=== PATIENT | female | born 1950 | race Two or more races ===

== ENCOUNTER 2021-08-02 12:17 | Emergency (ER) | payer OTHER, MEDICAID ==
[~2021-08-02] VITALS: Ht 144.8 cm; Wt 86.2 kg
[2021-08-02 14:06] VITALS: BP 130/48
[2021-08-02 14:12] LABS: Albumin 4.2 g/dL (3.4-5.0); BUN/Creatinine Ratio 19.1; Potassium 4.3 mmol/L (3.5-5.1)
[2021-08-02 14:14] LABS: Bilirubin, Total 0.4 mg/dL (0.2-1.0); Total Protein 7.9 g/dL (6.4-8.2)
[2021-08-02 14:23] LABS: Basophils # (auto) 0.2 10 ^3/uL (0-0.2); Basophils % (auto) 2.7 % (0.0-2.0); Eosinophils # (auto) 0.1 10 ^3/uL (0-0.8); Eosinophils % (auto) 1.9 % (0.0-7.0); Hematocrit 42.2 % (36.0-46.0); Hemoglobin 13.8 g/dL (12.2-16.2); Lymphocytes # (auto) 1.7 10 ^3/uL (0.4-5.4); Lymphocytes % (auto) 30.2 % (10.0-50.0); Mean Corpuscular Hemoglobin 28.5 pg (28.0-32.0); Mean Corpuscular Hgb Conc. 32.6 g/dL (32.0-36.0); Mean Corpuscular Volume 87.5 fL (80.0-100.0); Monocytes # (auto) 0.4 10 ^3/uL (0-1.3); Monocytes % (auto) 7.5 % (0.0-12.0); Neutrophils # (auto) 3.3 10 ^3/uL (1.6-8.6); Neutrophils % (auto) 57.7 % (37.0-80.0); Nucleated Red Blood Cells % 0.2 %; Red Blood Cells 4.82 10^6/uL (4.0-5.20); Red Cell Distribution Width 14.1 % (11.8-14.3); White Blood Cell 5.7 10^3/uL (4.4-10.8)
[2021-08-02 14:27] LABS: INR 1.02 (0.9-1.15); Partial Thromboplastin Time 29.9 sec (23.6-33.0)
== END 2021-08-02 14:06 | disposition short-term general hospital (02) ==
LOC: ER 12:24
DX: S06.5X0A Traumatic subdural hemorrhage without loss of consciousness, initial encounter (principal); E78.5 Hyperlipidemia, unspecified; R42 Dizziness and giddiness; I10 Essential (primary) hypertension; W18.09XA Striking against other object with subsequent fall, initial encounter; Y93.89 Activity, other specified; Y92.89 Other specified places as the place of occurrence of the external cause; Y99.8 Other external cause status
CPT/HCPCS: 36415; 70450; 80053; 85025; 85610; 85730

== ENCOUNTER 2022-11-10 10:23 | Emergency (ER) | payer OTHER, MEDICAID ==
[~2022-11-10] VITALS: Ht 149.9 cm; Wt 86.3 kg
[2022-11-10 10:48] LABS: Basophils # (auto) 0.1 10 ^3/uL (0-0.2); Eosinophils # (auto) 0 10 ^3/uL (0-0.8); Hematocrit 43.1 % (36.0-46.0); Hemoglobin 14.1 g/dL (12.2-16.2); Lymphocytes # (auto) 1.5 10 ^3/uL (0.4-5.4); Lymphocytes % (auto) 29.5 % (10.0-50.0); Mean Corpuscular Hemoglobin 28.7 pg (28.0-32.0); Mean Corpuscular Hgb Conc. 32.7 g/dL (32.0-36.0); Mean Corpuscular Volume 87.6 fL (80.0-100.0); Monocytes # (auto) 0.4 10 ^3/uL (0-1.3); Monocytes % (auto) 7.8 % (0.0-12.0); Neutrophils # (auto) 3.2 10 ^3/uL (1.6-8.6); Neutrophils % (auto) 60.7 % (37.0-80.0); Nucleated Red Blood Cells % 0.2 %; Red Blood Cells 4.93 10^6/uL (4.0-5.20); Red Cell Distribution Width 14.3 % (11.8-14.3); White Blood Cell 5.2 10^3/uL (4.4-10.8)
[2022-11-10 11:04] LABS: Calcium 9.2 mg/dL (8.5-10.1)
[2022-11-10 11:09] LABS: BUN/Creatinine Ratio 22.6 (10.0-20.0); Bilirubin, Total 0.6 mg/dL (0.2-1.0); Magnesium 2.3 mg/dL (1.6-2.6); Total Protein 6.8 g/dL (6.4-8.2)
[2022-11-10 15:21] VITALS: BP 145/68
== END 2022-11-10 15:21 | disposition home or self-care (01) ==
LOC: ER 10:23 → EDBD 10:23 → ER 15:21
DX: R53.1 Weakness (principal); I11.0 Hypertensive heart disease with heart failure; I50.9 Heart failure, unspecified; E78.5 Hyperlipidemia, unspecified; E11.9 Type 2 diabetes mellitus without complications; R51.9 Headache, unspecified
CPT/HCPCS: 36415; 70450; 71045; 80053; 82962; 83735; 84484; 85025; 93005

== ENCOUNTER 2025-03-11 17:53 | Emergency (ER) | payer OTHER, MEDICAID ==
[~2025-03-11] VITALS: Ht 147.3 cm; Wt 78.0 kg
[2025-03-11 17:55] VITALS: BP 119/55; PULSE 76; RESP 18; TEMP 98.1; O2SAT 97
--- NOTE | 2025-03-11 18:32 | ED.PDOC ---
History of Present Illness(SKN HPI Comments 74 year old female presents to ER for wound check. Patient states she's had a small non-tender palpable lump to left clavicle x 2 weeks and presents to ER today for wound check. Patient also endorses intermittent left shoulder pain x 3 months. Patient presents to ER ambulatory on arrival, with steady gait, in no distress with a small non-tender 1cm x 1cm mobile, well-circumscribed annular cyst to left mid clavicle without any erythema, increased warmth or fluctuance noted. Denies fever, body aches, chills, shortness of breath, chest pain, injury, numbness/tingling, neck pain or any further symptoms/complaints Chief Complaint: Abscess Time Seen by MD: 18:14 Primary Care Provider: Rahul History of Present Illness: Nurses Notes, Medications, Allergies Allergies: Coded Allergies: NO KNOWN ALLERGIES (Unverified , 08/02/21) Information Source: Patient Mode of Arrival: Ambulatory Past Medical History PAST MEDICAL HISTORY: CHF, High Lipids, HTN Surgical History (Other): Right shoulder surgery ELECTRICIAN RESEARCH History: Denies all ELECTRICIAN RESEARCH Hx Family History Family History: Family hx of DM, Family hx of heart gurpreet Social History Smoker: Non-Smoker Alcohol: Denies ETOH Use Drugs: Denies Drug Use Lives In: Home Constitutional: denies: chills, diaphoresis, fatigue, fever, malaise, sweats, weakness, others EENTM: denies: blurred vision, double vision, ear bleeding, ear discharge, ear drainage, ear pain, ear ringing, eye pain, eye redness, hearing loss, mouth pain, mouth swelling, nasal discharge, nose bleeding, nose congestion, nose pain, photophobia, tearing, throat pain, throat swelling, voice changes, others Respiratory: denies: cough, hemoptysis, orthopnea, SOB at rest, shortness of breath, SOB with excertion, stridor, wheezing, others Cardiovascular: denies: chest pain, dizzy spells, diaphoresis, Dyspnea on exertion, edema, irregular heart beat, left arm pain, lightheadedness, palpitations, PND, syncope, others Gastrointestinal: denies: abdomen distended, abdominal pain, blood streaked bowels, constipated, diarrhea, dysphagia, difficulty swallowing, hematemesis, melena, nausea, poor appetite, poor fluid intake, rectal bleeding, rectal pain, vomiting, others Genitourinary: denies: abnormal vagina bleeding, burning, dyspareunia, dysuria, flank pain, frequency, hematuria, incontinence, pain, , vagina discharge, urgency, others Neurological: denies: dizziness, fainting, headache, left sided numbness, left sided weakness, numbness, paresthesia, pre-existing deficit, right sided numbness, right sided weakness, seizure, speech problems, tingling, tremors, weakness, others Musculoskeletal: reports: others (As stated in HPI) Integumetry: reports: others (As stated in HPI) Allergic/Immunocompromised: denies: Difficulty Healing, Frequent Infections, Hives, Itching, others Hematologic/Lymphatic: denies: anemia, blood clots, easy bleeding, easy bruising, swollen glands, others Endocrine: denies: excessive hunger, excessive sweating, excessive thirst, excessive urination, flushing, intolerance to cold, intolerance to heat, unexplained weight gain, unexplained weight loss, others Psychiatric: denies: anxiety, bipolar disorder, depression, hopeless, panic disorder, schizophrenia, sleepless, suicidal, others Physical Exam General Appearance: No Apparent Distress HEENT: PERRL/EOMI Neck: Full Range of Motion, Non-Tender, Normal Respiratory: Chest Non-Tender, Lungs Clear, No Accessory Muscle Use, No Respiratory Distress, Normal Breath Sounds Cardiovascular: No Murmur, No Gallop, Regular Rate/Rhythm Breast Exam: Deferred Gastrointestinal: NOT DONE Genitalia: Deferred Pelvic: Deferred Rectal: Deferred Extremities: Normal capillary refill, Normal range of motion Musculoskeletal : Extremity Location: Shoulder (Slight TTP noted to left proximal humerus. 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 Was a procedure done?: No Sedation Sedation?: No Differential Diagnosis (INTG) Differential Diagnosis: Abrasion Differential Diagnosis: Abscess Differential Diagnosis: Hematoma, Neurovascular Injury Differential Diagnosis: Other (mass) X-Ray, Labs, Meds, VS Vital Signs Date Time Temp Pulse Resp B/P (MAP) Pulse Ox O2 Delivery O2 Flow Rate FiO2 03/11/25 17:55 98.1 76 18 119/55 97 98.1 PATIENT: ZACK HUGOACCT: [id number]: [id number] : 1950 LOC: ER ROOM / BED: / AGE / SEX: 74 / F ADM STATUS: REG ER SERVICE 18 ORDERING PHYSICIAN: KATIA CARDOZA PROCEDURE(s): LSHD2 - L SHOULDER 2+ VIEW XRAY REASON: left shoulder pain with small palpable cyst to left clavicle ORDER NUMBER(s): [id number], ACCESSION NUMBER(s): [id number] Indication: left shoulder pain with small palpable cyst to left clavicle Technique: XY L SHOULDER 2+ VIEW XRAYXY Comparison: None FINDINGS/IMPRESSION: No definitive radiographic evidence for acute fracture or dislocation. Possible old fracture deformity of the right humeral head with impaction . If there is concern for acute fracture MRI of the left shoulder can be obtained to evaluate. Downsloping acromion. [id number] left AC joint arthrosis. Cardiomegaly, pulmonary vascular congestion. Small to moderate left pleural effusion. Aortic atherosclerotic disease. ATED BY: HANNA PATINO MD DICTATED DATE/TIME: 03/11/251857 SIGNED BY: HANNA PATINO MD SIGNED DATE/TIME: 03/11/251857 CC: Left shoulder x-ray reviewed Patient neurovascularly intact, hemodynamically stable, without chest pain, dyspnea, hypoxia or heart failure symptoms Case, physical exam findings and incidental left shoulder x-ray findings reviewed and discussed with Dr. Self who's agreeable with discharge with prompt outpatient follow-up with PCP and cardiology for further evaluation Advised to f/u with PCP, cardiology and quality assurance qa lab technician/orthopedics in 1-2 days Patient verbalized understanding and agreeable with current plan of care Advised to return to ER immediately if symptoms worsen Images Reviewed?: Images reviewed and evaluated by me Time of 1ST Reevaluation: 18:30 Reevaluation 1ST: N/A Patient Education/Counseling: Diagnosis, Treatment, Prognosis, Need For Follow Up Family Education/Counseling: No Family Present SEPSIS Sepsis Screen Date sepsis recognized/suspect: Mar 11, 2025 Time Sepsis recognized/suspect: 1754 Recent Procedure: No On Antibiotic Therapy: No Respiratory Rate >20: No Heart Rate >90: No Temp<36 C (96.8 F) or >38.3 C: No SBP <90 or MAP <65 mmHG: No New Acute Mental Status Change: No Is the patient on CPAP, BIPAP,: No Physician Orders L Shoulder 2+ View Xray (03/11/25 18:19) Vital Signs Date Time Temp Pulse Resp B/P (MAP) Pulse Ox O2 Delivery O2 Flow Rate FiO2 03/11/25 17:55 98.1 76 18 119/55 97 98.1 Departure 1 Departure Time of Disposition: 18:30 Impression: Primary Impression: Dermoid cyst of left upper extremity Additional Impressions: Left shoulder pain Qualified Codes: M25.512 - Pain in left shoulder Hx of chronic heart failure Disposition: 01 HOME / SELF CARE / HOMELESS Condition: Stable Discharged With: Self Critical Care Note Critical Care Time?: No Stability Stability form required: No Heart Score Heart Score: Heart Score Response (Comments) Value History N/A 0 EKG N/A 0 Age N/A 0 Risk Factors N/A 0 Troponin N/A 0 Total 0 KATIA CARDOZA Mar 11, 2025 18:32
--- NOTE | 2025-03-11 18:57 | DVH ---
Indication: left shoulder pain with small palpable cyst to left clavicle Technique: XY L SHOULDER 2+ VIEW XRAYXY Comparison: None FINDINGS/IMPRESSION: No definitive radiographic evidence for acute fracture or dislocation. Possible old fracture deformit y of the right humeral head with impaction . If there is concern for acute fracture MRI of the left shoulder can be obtained to evaluate. Downsloping acromion. [id number] left AC joint arthrosis. Cardiomegaly, pulmonary vascular congestion. Small to moderate left pleural effusion. Aortic atheros clerotic disease.
== END 2025-03-11 19:33 | disposition home or self-care (01) ==
LOC: ER 17:57
DX: L02.91 Cutaneous abscess, unspecified (principal); M25.512 Pain in left shoulder; I11.0 Hypertensive heart disease with heart failure; I50.9 Heart failure, unspecified; E78.5 Hyperlipidemia, unspecified; Z98.890 Other specified postprocedural states
CPT/HCPCS: 73030